=== PATIENT | female | born 1985 | race Caucasian/White ===

== ENCOUNTER 2020-07-10 10:29 | Outpatient (RCR) | payer OTHER, SELFPAY | END 2020-09-10 23:59 | LOC: IMMUN 10:29 | PROVIDERS: Visit Provider Family Medicine | DX: Z23 Encounter for immunization (principal) | CPT/HCPCS: 0001A; 0002A; 91300 ==

== ENCOUNTER 2021-03-27 11:06 | Day surgery (SDC) | payer OTHER, SELFPAY ==
--- NOTE | 2021-03-19 10:44 | PCM.HP.BLA ---
History and Physical Date of Admission: 03/27/21 HPI: The patient is a 36 year old female presenting for pre-operative visit. She is scheduled for Hysteroscopy D&C with polyp resection and endometrial ablation, for AUB and endometrial polyp on 03/27/21. Procedure discussed along with risks, benefits and complications. Other alternatives discussed for management. Consent form signed? No, but reviewed, will sign day of surgery ? ? PAST MEDICAL HISTORY PAST MEDICAL HISTORY Diagnosis Date ? Cholestasis of ? ? Gestational thrombocytopenia (HCC) ? ? both pregnancies, saw heme in [place] ? Menorrhagia ? ? Other acne ? ? Palpitations ? ? PMH - PAST MEDICAL HISTORY OF ? ? Color Vision - Normal ? ? PAST SURGICAL HISTORY PAST SURGICAL HISTORY Procedure Laterality Date ? REMOVE IUD ? 12/21/2016 ? ? ? CURRENT MEDICATIONS Current Outpatient Medications Medication Sig Dispense Refill ? tranexamic acid (LYSTEDA) 650 mg tablet Take 2 tablets by mouth three times daily as needed (heavy menstrual bleeding) for up to 5 days. 30 tablet 5 ? ivabradine (CORLANOR) 5 mg tablet Take 5 mg by mouth twice daily. 180 tablet 2 ? MAGNESIUM GLYCINATE ORAL Take 200 mg by mouth daily at bedtime. ? ? ? resveratrol-quercetin 100-100 mg tab Take 250 mg by mouth once daily as needed. ? ? ? docosahexaenoic acid/epa (FISH OIL ORAL) Take by mouth. ? ? ? Cholecalciferol, Vitamin D3, (VITAMIN D-3) 50 mcg (2,000 unit) cap Take 2 capsules by mouth once daily. 8000IU daily ? ? ? Lactobacillus acidophilus (PROBIOTIC) 10 billion cell cap Take by mouth. ? ? ? cetirizine HCl (ZYRTEC ORAL) Take by mouth. ? ? ? MULTIVITAMIN ORAL Take by mouth. ? ? ? melatonin 5 mg tablet Take 5 mg by mouth. ? ? ? No current facility-administered medications for this visit. ? ? ALLERGIES: Patient has no known allergies. ? PERSONAL HISTORY: SOCIAL HISTORY Social History ? Tobacco Use ? Smoking status: Never Smoker ? Smokeless tobacco: Never Used Vaping Use ? Vaping Use: Never used Substance Use Topics ? Alcohol use: No ? Drug use: No ? FAMILY HISTORY: FAMILY HISTORY FAMILY HISTORY Problem Relation Age of Onset ? Hypertension Mother ? ? Macular Degen Mother ? ? Sarcoidosis Mother ? ? Cancer Father ? ? non melanoma skin ? No Known Problems Sister ? ? Hypertension Brother ? ? Kidney Disease Brother ? ? Alzheimer's Disease Paternal Grandmother ? ? Stroke Paternal Grandfather ? ? Colon Cancer Paternal Grandfather 85 ? No Known Problems Son ? ? No Known Problems Son ? ? ? REVIEW OF SYMPTOMS: GENERAL: denies fevers or chills ENDOCRINOLOGY: has not been on steroids Cardiology : denies palpitations or chest pain Respiratory: denies SOB or cough Hematology: denies history of prolonged bleeding or easy bruising or VTE Allergy: Denies history of personal or family history of allergy to anesthesia ? PHYSICAL EXAMINATION: ? VITALS: Last menstrual period 02/26/2021. ? GENERAL: The patient is well nourished, well hydrated in no acute distress. , The patient is oriented to time, place, and person. ? IMPRESSION: AUB, endometrial polyp ? PLAN: The risks/benefits/alternatives and personal involved for the planned hysteroscopy with polyp resection and endometrial ablation were reviewed with the patient. Her questions were answered to her satisfaction and she desires to proceed. Consent was signed. I reviewed with her postop instructions and expectations. ? ? I have reviewed and updated past medical and surgical history, medications and allergies This H&P was completed in my office on 03/19/21. Assessment & Plan Assessment/Plan (1) Menorrhagia: (2) Endometrial polyp:
[2021-03-27] VITALS (9 sets, daily range): BP systolic 102–138; BP diastolic 56–73; PULSE 75–91; RESP 14–16; TEMP 36.1–37.5; O2SAT 95–100; BMI 25.0
[2021-03-27] MEDS: Acetaminophen 500 MG Tablet 1000 MG PO (11:48)
[2021-03-27] MEDS: Ketorolac 30 MG/ML Syringe IV (11:48)
[2021-03-27] MEDS: Lactated Ringers 1,000 ML 15 ML IV (11:48)
[2021-03-27 12:15] LABS: Hematocrit 37.3 % (37-47); Hemoglobin 12.4 g/dL (12.0-15.0); Mean Corp Hgb Conc 33.2 g/dL (32-36); Mean Corpuscular Hgb 28.4 pg (27.0-32.0); Mean Corpuscular Volume 85.6 fL (81-99); Mean Platelet Vol. 10.5 fl (6.2-12.0); Platelet Count 155 K/mm3 (150-450); RBC Distribution Width CV 12.6 % (11.6-14.6); RBC Distribution Width SD 39.2 fl (35.1-43.9); Red Blood Count 4.36 M/mm3 (4.2-5.4); White Blood Count 8.7 K/mm3 (4.4-11.0)
[2021-03-27 12:26] LABS: Internal QC Validated? YES +Cl - CLEAR BKGD; Pregnancy, Serum, hCG Quali. NEGATIVE Negative
--- NOTE | 2021-03-27 12:45 | EMB_PTH ---
PATIENT: ALLY ADKINS LOC: [facility] [place] U#:[id number] AGE/SX: 36/F ROOM: RE03/27/[address]: Dr. Ally Chua MD : [id number] BED: DIS: 03/27/2021 SPEC #: [id number] RECD: 03/27/21 14:10 STATUS: JIL ZAMORA #: [id number] TWYLA: 03/27/21 12:[address]: Ally Chua DEPT: SURGICAL PATHOLOGY RECD BY: Deanne Gonzales ENTERED: 03/30/21 16:52 SP TYPE: ENDOM BX/C AUGUSTIN DR: Ten Blanco, HARDBOARD PANEL PRINTER-C Tissues: Endometrium, NOS Procedures: Surgery Specimen Level IV HEADER OPERATION: Hysteroscopy, D & C with endometrial ablation, Aislinn PRE-OP DIAGNOSIS: Menorrhagia, endometrial polyps TISSUE SUBMITTED: Endometrial polyp and curettings MICROSCOPIC DIAGNOSIS Endometrial polyp and curettings: Secretory endometrium. SJ:carol 04/01/2021 MICROSCOPIC DESCRIPTION Slides are reviewed. GROSS DESCRIPTION Received in fixative is one container labeled with the patient's name and designated endometrial curettings and polyp. The specimen consists of multiple fragments of pink hemorrhagic soft tissue that in aggregate measure 5 x 3 x 0.3 cm. The entire specimen is submitted in two cassettes. / BRAXTON:carol 03/31/21 TC:4 CPT: 72345
--- NOTE | 2021-03-27 13:08 | PCM.DC ---
Discharge Instructions Diet Discharge Diet: No restrictions Activity May resume sexual activity in: 2 weeks Lifting Restrictions: none Dressing / Incision Call your doctor if your incision/area has: Sudden Increased Bleeding and Foul Smelling Discharge Call your doctor if you observe: Fever of 101 or Higher and Using more than 1 pad per hour (for 2 hrs in a row) Follow Up Care Please Follow Up With: Liya Chua MD When: 2-4 weeks or as needed. Call [phone] to make an appointment or with any concerns. Test Results: Test results from this visit will be discussed in further detail at your follow-up appointment, if applicable. Discharge Plan Admission Primary Reason for Your Visit: Endometrial polyp removal and endoemtrial ablation Attending Provider: Liya Chua Primary Care Provider: Ten Blanco NP Discharge Orders/Prescriptions Prescriptions: No Action Culturelle 10 billion cell Capsule 1 cap PO QHS RF: 0 multivitamin Capsule 1 cap PO DAILY RF: 0 zinc 50 mg Capsule 50 mg PO QODAY RF: 0 magnesium glycinate 100 mg Tablet 200 mg PO QHS RF: 0 Zyrtec 10 mg Capsule 10 mg PO DAILY RF: 0 melatonin 5 mg Capsule 5 mg PO QHS RF: 0 ivabradine 5 mg Tablet 2.5 mg PO BID RF: 0 Organ Grape 1 cap PO/SL DAILY RF: 0 Vitex Fruit 1 cap PO/SL DAILY RF: 0 Other Ambulatory Orders: CBC-Complete Blood Cnt No Diff (Routine) Timeframe: 20210327 Facility: [facility] - Location: Laboratory Ordered By: Dr. Liya Chua ,Urine (Routine) Timeframe: [id number] Facility: [facility] - Location: Laboratory Ordered By: Dr. Liya Chua Referrals / Follow Up: Ten Blanco NP, KITCHEN MECHANIC-C [Primary Care Provider] - Disposition Disposition (needs filled in before D/C Order can be placed): Home, Self Care
--- NOTE | 2021-03-27 13:09 | PCM.OPRPT ---
Problems Associated Problem List Diagnoses (1) Menorrhagia: (2) Endometrial polyp: Report of Operation Date of Procedure: 03/27/21 Pre-Operative Diagnosis: AUB, endometrial polyp Post-Operative Diagnosis: same Surgery/Procedure Performed:: Hysteroscopy with D&C and polyp removal and endometrial ablation Description of Surgical Findings:: Polypoid appearing endometrium. Normal-appearing cervix and vagina. Surgeon: Liya Chua ct scan technologist: None Type of Anesthesia: MAC/Supplemental/Local Anesthesiologist: Love Bennett Special Medications: none Specimen's removed: endometrial polyp, curettings Drains: none Estimated Blood Loss (mL): 10 Fluids Replaced: 1200 Description of Procedure: The patient was taken to the OR where she was prepped and draped in dorsal lithotomy position. The weighted speculum was placed in the vagina and the anterior lip of the cervix was grasped with a single-tooth tenaculum. A paracervical block was administered with [1% lidocaine with 1-100,000 epinephrine solution]. The cervix was dilated serially with Hegar dilators. The [5mm] hysteroscope was placed into the uterine cavity and the above findings were noted. Bilateral tubal ostia [were] identified. The uterus sounded to 8cm and the cervical length was 3.5cm. The endometrial cavity length was 4.5cm. The hysteroscope was removed. [A gentle sharp curettage was done of the uterine cavity. The specimen was handed off and sent to pathology.] The hysteroscope was placed back into the endometrial cavity and the polypoid appearing material had been removed. The Aislinn device was set to 4.5cm. The instrument was then seated into the endometrial cavity and the indicator was in the green. The cervical seal balloon was inflated and the uterine integrity test was passed. The ablation procedure was initiated and completed without interruption. During the ablation procedure gentle traction was held on the tenaculum and the Aislinn device was held up against the uterine fundus. When the ablation procedure was completed the Aislinn was removed. The tenaculum was removed and the tenaculum site was noted to be hemostatic. All sponge and needle counts were correct. A vaginal sweep was performed by me. The patient was awakened and taken to the recovery room in stable condition. Hysteroscopic fluid deficit was 50 cc of normal saline] Grafts/Implants Used: none Procedure Start Time: 13:13 Procedure Stop Time: 13:28 Complications none Admit VTE Documentation VTE Present on Admission: No VTE Mechan Device Prophylaxis: SCD's VTE Pharm Prophylaxis ordered?: No Reason prophylaxis not ordered:: Drug Declined by Patient
[2021-03-27] MEDS: Lidocaine 1% /Epi 1:100 (20ml) 20 ML Vial (13:13)
[2021-03-27] MEDS: Lactated Ringers 1,000 ML 75 ML IV (13:32)
== END 2021-03-27 15:02 | disposition home or self-care (01) ==
LOC: SDC 11:12 → AC 11:38
PROVIDERS: PCP Nurse Practitioner Family; Visit Provider Obstetrics & Gynecology
PROC: 0U5B8ZZ Destruction of Endometrium, Via Natural or Artificial Opening Endoscopic (ICD-10-PCS; CPT 58558; principal; 2021-03-27 12:30)
DX: N84.0 Polyp of corpus uteri (principal); N93.9 Abnormal uterine and vaginal bleeding, unspecified; N92.0 Excessive and frequent menstruation with regular cycle; Z82.49 Family history of ischemic heart disease and other diseases of the circulatory system
CPT/HCPCS: 00952; 58558; 58563; 84703; 85027; 88305; J7120; J2405

== ENCOUNTER 2021-05-20 13:59 | Emergency (ER) | payer OTHER, SELFPAY ==
[2021-05-20 14:00] VITALS: BP 145/103; PULSE 126; RESP 15; TEMP 35.7; O2SAT 97; BMI 24.7
--- NOTE | 2021-05-20 15:43 | EKG12_ITS ---
Test Reason : SOB Blood Pressure : / mmHG Vent. Rate : 080 BPM Atrial Rate : 080 BPM P-R Int : 122 ms QRS Dur : 078 ms QT Int : 364 ms P-R-T Axes : 059 024 053 degrees QTc Int : 419 ms Normal sinus rhythm with sinus arrhythmia Anteroseptal OH, age undetermined, cannot be excluded Confirmed by LEONARDO FRANKLIN, PANCHO ([id number]), publications editor GURINDER COURTNEY ([id number]) on 05/21/2021 11:55:50 AM Referred By: TYRONE Confirmed By:PANCHO PATTERSON MD
--- NOTE | 2021-05-20 15:44 | EDS_ITS ---
HPI History of Present Illness Chief Complaint: Complaint Detail of Chief Complaint: Lightheaded, dizzy, and weak Informant: patient Narrative Narrative: Patient presents to the emergency department with multiple complaints. She was diagnosed with COVID-19 8 days ago on a home test. Prior to that she had had some hematuria and went to urgent care where she had a urinalysis and a culture sent. Patient was empirically treated with antibiotics but the culture came back negative for bacteria. Patient has history of pots and states that her heart rate does not seem to stay down today and she feels thirsty and her veins are flat. She complains of feeling lightheaded and dizzy and fatigue. She denies any chest pain or shortness of breath. She does have urinary frequency but she states she is trying to drink a lot of water. [facility] Medical History (Updated 05/20/21 @ 16:[address] Jakob Mckeon ) Anemia Anxiety Blackout Blood disorder COVID-19 History of echocardiogram History of irregular heartbeat Non-smoker POTS (postural orthostatic tachycardia syndrome) Shortness of breath on exertion Wears contact lenses Home Medications Lactobacillus rhamnosus GG [Culturelle] 1 cap PO QHS 03/20/21 [History Last Taken Unknown] Organ Grape 1 cap PO/SL DAILY 03/20/21 [History Last Taken Unknown] Vitex Fruit 1 cap PO/SL DAILY 03/20/21 [History Last Taken Unknown] cetirizine [Zyrtec] 10 mg PO DAILY 03/20/21 [History Last Taken Unknown] ivabradine 2.5 mg PO BID 03/20/21 [History Last Taken 03/27/21] magnesium glycinate 200 mg PO QHS 03/20/21 [History Last Taken Unknown] melatonin 5 mg PO QHS 03/20/21 [History Last Taken Unknown] multivitamin 1 cap PO DAILY 03/20/21 [History Last Taken Unknown] zinc 50 mg PO QODAY 03/20/21 [History Last Taken Unknown] fexofenadine [Mago Allergy] 60 mg PO DAILY 05/20/21 [History Last Taken Unknown] Allergy/AdvReac Type Severity Reaction Status Date / Time No Known Allergies Allergy Verified 05/20/21 14:00 Surgical History Hx of wisdom tooth extraction Social History Smoking Status: Never smoker ROS ROS ED Constitutional Constitutional ED: Reports systems reviewed and no addt'l complaints, except as documented; Denies body ache(s), change in weight or chills Eyes Eyes: Denies acute decrease in peripheral vision, change in vision, double v ision or loss of vision ENT ENT ED: Reports none; Denies ear pain, lip swelling, loss taste/smell, neck pain, otalgia or sore throat Cardiovascular Cardiovascular: Reports none; Denies abdominal pain, chest pain with activity, leg edema, lightheadedness, palpitations, rapid heart rate or syncope Respiratory/Chest Respiratory/Chest: Reports none; Denies change in mental status, dry cough, dyspnea, hemoptysis, shortness of breath at rest or shortness of breath with exertion Gastrointestinal Gastrointestinal: Reports none; Denies abdominal pain, change in stool character, diarrhea, hematemesis, hematochezia, melena, rectal bleeding or vomiting Genitourinary Genitourinary ED: Reports none and urinary frequency; Denies abdominal discomfort, anuria, dysuria, genital pain or polyuria Musculoskeletal Musculoskeletal: Reports none; Denies arthralgias, back pain, difficulty walking, extremity pain, muscle weakness or myalgias Integumentary Reports none; Denies abscess or rash Neurologic Neurologic: Reports none, weakness and other Details: Lightheaded ; Denies abnormal gait, confusion, focal weakness, frequent falls, headache(s), loss of vision, numbness, paresthesias, radicular pain or vertigo Psychiatric Psychiatric: Reports systems reviewed and no addt'l complaints, except as documented and none; Denies behavioral changes, confusion, difficulty concentrating, hallucinations, suicidal ideation, tactile hallucinations or visual hallucinations Endocrine Endocrinology: Denies none, cold intolerance, excessive sweating, fatigue or heat intolerance Hematologic/Lymphatic Hematologic/Lymphatic: Reports none; Denies anemia, easy bleeding or easy bruising Allergic/Immunologic Allergic/Immunologic ED: Denies as per HPI, none, lip swelling, mouth swelling, throat swelling, tongue swelling or hives EXAM Physical Exam Const Vital Signs: 05/20/21 14:00 05/20/21 15:55 05/20/21 16:00 Temperature 96.2 F L 99.3 F H 99.3 F H Temperature Source Temporal Oral Oral Pulse Rate 126 H 103 H 82 Respiratory Rate 15 14 16 Blood Pressure 145/103 H 151/86 H 151/86 H Blood Pressure Mean 117 107 107 Pulse Ox 97 100 99 Oxygen Delivery Method Room Air Room Air Room Air Positive well nourished and well developed General Appearance ED: well developed and NAD HEENT Reports TM's clear and moist mucous membranes normocephalic and atraumatic; Negative for trauma or tenderness Tympanic Membrane ED: Yes TM's clear Eyes PERRL and EOMs intact bilaterally General Eye ED: Negative for pale conjunctiva or scleral icterus Neck no lymphadenopathy, supple and no JVD General: Negative for tenderness Chest Wall inspection of chest normal and palpation of chest normal Chest: Negative for tenderness Resp normal respiratory effort and clear to auscultation bilaterally Effort and Inspection: Negative for respiratory distress or pain with movement Auscultation: Negative for rhonchi, wheezes or diminished lung sounds Cardio regular rhythm, S1 normal heart sound, S2 normal heart sound and no murmurs Rate: tachycardic Peripheral Pulses: pulses 2+ throughout GI normal to inspection, nondistended, normoactive bowel sounds, soft to palpation, non-tender, non-distended and no masses Back/Spine no CVA tenderness and no thoracic nor lumbar tenderness Extremity normal to inspection General Extremety ED: Negative for edema General Extremity: Negative for edema Neuro oriented x3, CN's II-XII intact bilaterally, no sensory deficits noted and gait normal Sensorium / Orientation: awake, alert, oriented to person, oriented to place and oriented to time Motor Exam: strength 5/5 throughout and strength abnormal Psych mental status grossly normal Skin no rashes or lesions noted and no wounds MDM MDM MDM Narrative Medical decision making narrative: IV line established on arrival. Patient was given a liter normal same fluid bolus. Lab work-up was unremarkable. EKG showed a sinus rhythm with a ventricular rate of 80 bpm with occasional PACs. A t this point I suspect symptoms may be related to COVID. Her vital signs are otherwise stable. Advised patient on pushing fluids and following up with primary care physician within next 3 to 5 days. Lab Data Attestation: I reviewed the patient's lab results. Labs: Laboratory Results - last 24 hr 05/20/21 05/20/21 05/20/21 16:04 16:04 16:04 WBC 8.2 RBC 4.84 Hgb 14.0 Hct 41.2 MCV 85.1 MCH 28.9 MCHC 34.0 RDW Std Deviation 40.5 RDW Coeff of Rochelle 13.2 Plt Count 219 MPV 9.8 Immature Gran % (Auto) 0.500 Neut % (Auto) 71.4 H Lymph % (Auto) 21.6 [place] % (Auto) 6.1 Eos % (Auto) 0.2 Baso % (Auto) 0.2 Absolute Neuts (auto) 5.9 Absolute Lymphs (auto) 1.77 Nucleated RBC % 0 D-Dimer Quant (PE/DVT) < 0.27 L Sodium 138 Potassium 3.7 Chloride 108 H Carbon Dioxide 22.0 Anion Gap 8 BUN 11 Creatinine 0.77 Estim Creat Clear Calc 97.28 Est GFR (MDRD) Af Amer 108 Est GFR (MDRD) Non-Af 90 BUN/Creatinine Ratio 14.3 Glucose 97 Calcium 8.9 Troponin I High Sens 4 Urine Color Urine Clarity Urine pH Ur Specific [place] Urine Protein Urine Glucose (UA) Urine Ketones Urine Occult Blood Urine Nitrite Urine Bilirubin Urine Urobilinogen Ur Leukocyte Esterase Urine RBC Urine WBC Ur Squamous Epith Cells Urine Bacteria Urine Mucus 05/20/21 16:04 WBC RBC Hgb Hct MCV MCH MCHC RDW Std Deviation RDW Coeff of Rochelle Plt Count MPV Immature Gran % (Auto) Neut % (Auto) Lymph % (Auto) [place] % (Auto) Eos % (Auto) Baso % (Auto) Absolute Neuts (auto) Absolute Lymphs (auto) Nucleated RBC % D-Dimer Quant (PE/DVT) Sodium Potassium Chloride Carbon Dioxide Anion Gap BUN Creatinine Estim Creat Clear Calc Est GFR (MDRD) Af Amer Est GFR (MDRD) Non-Af BUN/Creatinine Ratio Glucose Calcium Troponin I High Sens Urine Color Yellow Urine Clarity Clear Urine pH 7.0 Ur Specific [place] 1.010 Urine Protein Negative Urine Glucose (UA) Normal Urine Ketones Negative Urine Occult Blood Negative Urine Nitrite Negative Urine Bilirubin Negative Urine Urobilinogen Normal Ur Leukocyte Esterase Negative Urine RBC 0 SEEN Urine WBC 0 SEEN Ur Squamous Epith Cells 0 SEEN Urine Bacteria 0 SEEN Urine Mucus 0 SEEN EKG Initial EKG: Attestation: I personally reviewed and interpreted this EKG as follows: Comments: Sinus rhythm with a ventricular rate of 80 bpm with occasional PACs Discharge Plan Triage Chief Complaint: Complaint ED Provider: Jakob Mckeon Dx/Rx/DC Orders Clinical Impression: Dizziness, COVID-19, POTS (postural orthostatic tachycardia syndrome) Instructions: ED Dizziness, Uncertain Cause, Caring for Someone Who Has COVID- 19 Prescriptions: No Action Culturelle 10 billion cell Capsule 1 cap PO QHS RF: 0 multivitamin Capsule 1 cap PO DAILY RF: 0 zinc 50 mg Capsule 50 mg PO QODAY RF: 0 magnesium glycinate 100 mg Tablet 200 mg PO QHS RF: 0 Zyrtec 10 mg Capsule 10 mg PO DAILY RF: 0 melatonin 5 mg Capsule 5 mg PO QHS RF: 0 ivabradine 5 mg Tablet 2.5 mg PO BID RF: 0 Organ Grape 1 cap PO/SL DAILY RF: 0 Vitex Fruit 1 cap PO/SL DAILY RF: 0 fexofenadine [Mago Allergy] 60 mg Tablet 60 mg PO DAILY RF: 0 Primary Care Provider: Ten Blanco NP Referrals: Ten Blanco NP, NUCLEAR RADIOLOGIST-C [Primary Care Provider] - 3-5 Days Disposition Disposition: Home, Self Care
[2021-05-20 15:55] VITALS: BP 151/86; PULSE 103; PULSE 93; RESP 14; TEMP 37.4; O2SAT 100
[2021-05-20 16:00] VITALS: BP 151/86; PULSE 82; RESP 16; TEMP 37.4; O2SAT 99
[2021-05-20] MEDS: 0.9% Normal Saline 1,000 ML 1000 ML IV (16:04)
[2021-05-20 16:09] LABS: Bacteria 0 SEEN /hpf (None Seen); Mucous, Urine 0 SEEN /hpf (<or=2+); Red Blood Cells-Urine 0 SEEN /hpf (0-5); Squamous Epithelial Cells - UA 0 SEEN /hpf (5-10); White Blood Cells 0 SEEN /hpf (0-5)
[2021-05-20 16:13] LABS: Absolute Lymphocyte Count 1.77 X10^3/uL (0.83-4.51); Absolute Neutrophil Count 5.9 X10^3/uL (2.0-7.7); Basophil# 0.02 X10^3/uL; Basophil% 0.2 % (0-1); Eosinophil# 0.02 X10^3/uL; Eosinophils% 0.2 % (0-5); Hematocrit 41.2 % (37-47); Lymphocyte # 1.77 X10^3/ul (0.83-4.51); Lymphocyte % 21.6 % (19-41); Mean Corpuscular Hgb 28.9 pg (27.0-32.0); Mean Corpuscular Volume 85.1 fL (81-99); Mean Platelet Vol. 9.8 fl (6.2-12.0); Monocyte% 6.1 % (0-10); NRBC Flagged by Analyzer 0 % (0-5); Neutrophil # 5.85 X10^3/uL (2.7-7.7); Neutrophil % 71.4 % (47-70); Platelet Count 219 K/mm3 (150-450); RBC Distribution Width CV 13.2 % (11.6-14.6); RBC Distribution Width SD 40.5 fl (35.1-43.9); Red Blood Count 4.84 M/mm3 (4.2-5.4); White Blood Count 8.2 K/mm3 (4.4-11.0)
[2021-05-20 16:26] LABS: Color, Urine Yellow (Yellow); Glucose, Dipstick Normal (Normal); Ketone-Dipstick Negative (Negative); Leukocyte Esterase-Dipstick Negative /ul (Negative); Nitrite-Dipstick Negative (Negative); Occult Blood-Urine Negative /ul (Negative); Protein-Dipstick Negative (Negative); Urine Bilirubin Dipstick Negative (Negative); Urine Clarity Clear (Clear); Urine Urobilinogen Normal (Normal)
[2021-05-20 16:36] LABS: Anion Gap 8 (5-15); BUN 11 mg/dL (7-18); BUN/Creat Ratio 14.3 RATIO (10-20); Calcium,Total 8.9 mg/dL (8.5-10.1); Chloride 108 mmol/L (98-107); Creatinine, Serum 0.77 mg/dL (0.55-1.02); EST Glomerular Filtration Rate 90 mL/min (>60); Est Glom Filt Rate - Afr Amer 108 mL/min (>60); Estimated Creatinine Clearance 97.28 ml/min; Glucose 97 mg/dL (74-106); Potassium 3.7 mmol/L (3.5-5.1); Sodium Level 138 mmol/L (136-145); Troponin-I HS 4 pg/mL (3.0-54.0)
[2021-05-20 16:37] LABS: D-Dimer Quantitative (DVT/PE) < 0.27 FEU/ug/m (0.27-0.49)
[2021-05-20 17:19] VITALS: BP 124/78; PULSE 88; RESP 14; O2SAT 96
== END 2021-05-20 17:20 | disposition home or self-care (01) ==
PROVIDERS: Emergency Provider Emergency Medicine; PCP Nurse Practitioner Family; Visit Provider Emergency Medicine
DX: R42 Dizziness and giddiness (principal); R31.9 Hematuria, unspecified; R35.0 Frequency of micturition; I49.8 Other specified cardiac arrhythmias; U07.1 COVID-19
CPT/HCPCS: 80048; 81001; 84484; 85025; 85379; 93005; 96360; 99284; J7030